=== PATIENT | female | born 1995 | race Caucasian/White ===

== ENCOUNTER 2017-06-27 02:04 | Emergency (ER) | payer BC, OTHER ==
[~2017-06-27] VITALS: Ht 152.4 cm; Wt 61.6 kg
[2017-06-27 02:13] VITALS: TEMP 36.5; Ht 152.4 cm; Wt 61.6 kg
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
[2017-06-27 02:55] LABS: BUN/CREATININE RATIO 12.2 (10-20); CALCIUM 8.5 mg/dl (8.5-10.1); CREATININE 0.62 mg/dl (0.60-1.20); POTASSIUM 2.9 mmol/L (3.5-5.1)
[2017-06-27 03:42] VITALS: BP 117/82; PULSE 106; O2SAT 95
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
== END 2017-06-27 03:43 | disposition short-term general hospital (02) ==
LOC: EDBD 02:04 → C.EDC 02:05
DX: S06.300A Unspecified focal traumatic brain injury without loss of consciousness, initial encounter (principal); V43.62XA Car passenger injured in collision with other type car in traffic accident, initial encounter; T51.91XA Toxic effect of unspecified alcohol, accidental (unintentional), initial encounter; E87.6 Hypokalemia

== ENCOUNTER 2017-10-05 20:28 | Emergency (ER) | payer BC, OTHER ==
[~2017-10-05] VITALS: Ht 152.4 cm; Wt 61.2 kg
[2017-10-05 21:08] VITALS: TEMP 36.9; Ht 152.4 cm; Wt 61.2 kg
--- NOTE | 2017-10-05 22:45 | DIAGNOSTIC IMAGING REPORT ---
HEAD WITHOUT CONTRAST (CT) CT DOSE: 537.48 mGy.cm HISTORY: Headache right head pain, hx. epidural hematoma w/ inc. ICP same location TECHNIQUE: Multiaxial CT images of the head were performed without the use of intravenous contrast. A dose lowering technique was utilized adhering to the principles of ALARA. Comparison: 06/27/2017 Findings: The paranasal sinuses and mastoid air cells are clear. There is a described right skull fracture has essentially healed. No acute bony abnormality. Major sinuses are considered clear. The epidural hematoma produces described has resolved. There is no acute intracranial hemorrhage. There is no ventricular shift. The basilar cisterns are unremarkable. Impression: No acute intracranial abnormality. Previous described right epidural hematoma has resolved. No acute process. The above report was generated using voice recognition software. It may contain grammatical, syntax or spelling errors. Electronically signed by: Walter Dowling M.D. 10/05/2017 10:43 PM Dictated Date/Time: 10/05/2017 10:40 PM
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
[2017-10-05 23:25] VITALS: BP 137/89; PULSE 99; O2SAT 98
== END 2017-10-05 23:28 | disposition home or self-care (01) ==
LOC: C.EDB 20:29 → C.EDD 23:28
DX: R51 Headache (principal); Z87.81 Personal history of (healed) traumatic fracture